=== PATIENT | female | born 1995 ===

== ENCOUNTER 2018-12-03 07:45 | Inpatient (IN) ==
[2018-12-03] MEDS ORDERED: miSOPROStol 50 MCG TAB PO ONE (09:13)
[2018-12-03] MEDS ORDERED: OXYTOCIN 30 UNITS/500 ML BAG IV PRN (09:13)
--- NOTE | 2018-12-03 09:19 | Labor Progress Brief Note ---
Date of Service December 03, 2018 Pt doing well FHR; CAT1 Ctx; 4-5mins VE 1cm/50/-3 / post A/p prolonged gestation discussed induction pt agreeable to plan Cytotec #1 Results & Data Vital Signs (Past 12 Hours) Vital Signs Temp Pulse Resp BP 12/03/18 08:05 37.0 C 18 12/03/18 08:00 80 118/72
[2018-12-03 09:39] LABS: Hematocrit (blood only) 36.2 % (37-47); Hemoglobin 12.2 g/dL (12.0-16.0); Mean Corpuscular Hemoglobin 30.3 pg (25-34); Mean Corpuscular Volume 89.8 fL (80-100); Platelet Count 166 K/uL (130-400); RDW Coefficient of Variation 13.4 % (11.5-14.5); RDW Standard Deviation 43.8 fL (36.4-46.3); Red Blood Count 4.03 M/uL (4.2-5.4); White Blood Count 9.64 K/uL (4.8-10.8)
[2018-12-03 09:42] LABS: Mean Corpuscular Hgb Conc 33.7 g/dL (32-36)
--- NOTE | 2018-12-03 09:46 | History and Physical Report ---
DATE OF ADMISSION: 12/03/2018 DATE OF : 1995 HISTORY OF PRESENT ILLNESS: The patient is a 23-year-old G1, P0, due date 11/28/2018 making her 40 weeks and 4 days, presented to Labor and Delivery for prolonged gestation. The patient is here for induction of labor. On arrival, she had no shortness of breath, no chills, no fever, no rupture of membranes or bloody show. The patient, however, has irregular contractions every 4-5 minutes, mild intensity. COURSE: Has been unremarkable. PAST MEDICAL HISTORY: None. PAST SURGICAL HISTORY: None. SOCIAL HISTORY: The patient denies tobacco, drug or alcohol use. FAMILY HISTORY: Noncontributory. ALLERGIES: No known drug allergies. MEDICATIONS: The patient is on vitamins. PHYSICAL EXAMINATION: GENERAL: Well-developed, well-nourished white female, in no acute distress. HEART: S1, S2. Regular rhythm and rate. LUNGS: Clear to auscultation bilaterally. ABDOMEN: Gravid. heart rate is category 1. Bedside ultrasound shows cephalic presentation. PELVIC: Shows the patient is 1 cm, 50% and -3 station. CERVIX: Moderate consistency and posterior. ASSESSMENT AND PLAN: A 23-year-old G1, P0 at 40 and 4 weeks, here for induction of labor for prolonged gestation. The patient is admitted and we will start induction.
[2018-12-03] MEDS ORDERED: miSOPROStol 50 MCG TAB PO SCH (13:30)
[2018-12-03] MEDS ORDERED: DINOPROSTONE 10 MG INSERT PV ONE (22:00)
--- NOTE | 2018-12-03 22:27 | Labor Progress Brief Note ---
Date of Service December 03, 2018 Pt doing well FHR; CAT1 Ctx 2-5mins VE 1-2/50/-3 EFW by slava: 7.5Lbs Cervidil #1 placed Results & Data Vital Signs (Past 12 Hours) Vital Signs Temp Pulse Resp BP 12/03/18 22:24 62 113/64 12/03/18 19:05 37.1 C 72 18 107/56 L 12/03/18 15:50 60 127/76 12/03/18 14:37 69 119/73 12/03/18 13:04 36.8 C 18 12/03/18 11:47 65 115/67
[2018-12-04] MEDS ORDERED: ACETAMINOPHEN 325 MG TAB PO PRN (00:24)
[2018-12-04] MEDS ORDERED: DiphenhydrAMINE HCL 50 MG/ML VIAL IV STA (00:26)
[2018-12-04] MEDS ORDERED: CEFAZOLIN 2000MG 2,000 MG/15 ML SYR IV SCH (06:00)
[2018-12-04] MEDS ORDERED: CITRIC ACID/SODIUM CITRATE 15 ML UDC PO SCH (06:00)
--- NOTE | 2018-12-04 08:48 | Obstetrical Progress Note ---
Date of Service December 04, 2018 Subjective Patient is seen Reviewed her records from office and got sign out from Dr. Bustillo She is a 23 yo at 40.6 wks admitted for IOL yesterday am had been uncomplicated GBS negative Received 2 doses of Cytotec and now has Cervidil Feels ctxs q 5-6 min, pain is 4/10 No LOF/VB +FM FHR 130's with goo variability and accels Plan to removed Cervidil at 1020, neyda her eat/ shower and reevaluate cervix All questions were answered Results & Data Vital Signs (Past 12 Hours) Vital Signs Temp Pulse Resp BP 12/04/18 07:24 77 107/72 12/04/18 07:23 18 12/04/18 04:27 36.9 C 60 18 110/67 12/03/18 22:24 37.2 C 62 18 113/64
[2018-12-04] MEDS: LACTATED RINGER'S 1,000 ML IV PRN ×2 (11:45→13:45)
--- NOTE | 2018-12-04 12:04 | Obstetrical Progress Note ---
Date of Service December 04, 2018 Subjective Patient is reevaluated She feels ctxs more often Cervidil was taken out, she took shower PE: She is 5' 6", thin healthy female Abdomen seems large, protruded, measures 41 cm VE: 3/ 70%/ -3, posterior Her mother is asking about baby's weight She herself had 2 Csections for large babies, 9 ' 12 " Patient's is large built and he was 11 lb at I performed bed side US, all measurements are above average except BPD which is in canal EFW 4489 gr Discussed LGA, labor, pushing, risks of shoulder dystocia in details Discussed ACOG recommendation of Csection if EFW above 5000 gr Discussed trial of labor They are tending toward Csection Discussed it is major surgery and the risks of major surgery After long discussion they wanted official US before they would proceed with IOL with pitocin All questions were answered Results & Data Vital Signs (Past 12 Hours) Vital Signs Temp Pulse Resp BP 12/04/18 11:48 37.2 C 83 20 116/81 12/04/18 07:24 77 107/72 12/04/18 07:23 18 12/04/18 04:27 36.9 C 60 18 110/67
--- NOTE | 2018-12-04 13:11 | Ultrasound Report ---
Study: Pelvic ultrasound HISTORY: Large for dates. FINDINGS: Single, viable intrauterine . Estimated gestational age is 40 weeks 2 days. Fetus is cephalic in position. Following parameters were obtained: 1. weight: 8 lbs. 7 oz. 2. BPD 9.3 equals 37 weeks 5 days. HC 33.3 equals 38 weeks 0 days. A.c. 36.4 equals 40 weeks 2 days. FL: 7.86 equals 40 weeks 1 day. Amniotic fluid index is 9.5 cm placenta is fundal IMPRESSION: Single, viable intrauterine of approximately 40 weeks gestational age. Cephalic presentation. Amniotic fluid index 9.5 cm Electronically signed by: Aman Scruggs M.D. 12/04/2018 1:09 PM JUN
--- NOTE | 2018-12-04 14:26 | Obstetrical Progress Note ---
Date of Service December 04, 2018 Subjective Patient is back from US EFW 8 lb 9 oz, measurements were not accurate due to head being in pelvis AC/ FL are about the same of mine Patient suspects large baby and nervous, she says she did not think she could have baby vaginally since yesterday I discussed ACOG recommendations again of trial of labor if EFW < 5000 gr/ 11 lb She understands but she suspects large baby as of her mother who had large babies and had to have Csection After discussion of the risks of major surgery like bleeding , infection, injury to surrounding organs ( like bowels, bladder, ureters) blood cloths, DVT, PE, suture risks of repeat Csection, scarring, adhesions She decided on Primary Csection today All questions were answered and she signed the informed consent consent Results & Data Vital Signs (Past 12 Hours) Vital Signs Temp Pulse Resp BP 12/04/18 11:48 37.2 C 83 20 116/81 12/04/18 07:24 77 107/72 12/04/18 07:23 18 12/04/18 04:27 36.9 C 60 18 110/67
[2018-12-04] MEDS ORDERED: LACTATED RINGER'S 1,000 ML IV SCH ×3 (14:30→16:45)
[2018-12-04] MEDS ORDERED: MoRPHine SULFATE PF 1 MG/ML 10 ML AMP/VIAL ONE (14:42)
[2018-12-04 15:16] LABS: Hematocrit (blood only) 35.5 % (37-47); Hemoglobin 11.8 g/dL (12.0-16.0); Mean Corpuscular Hemoglobin 29.8 pg (25-34); Mean Corpuscular Volume 89.6 fL (80-100); Mean Platelet Volume 11.9 fL (7.4-10.4); Platelet Count 162 K/uL (130-400); RDW Coefficient of Variation 13.4 % (11.5-14.5); RDW Standard Deviation 44.2 fL (36.4-46.3); Red Blood Count 3.96 M/uL (4.2-5.4); White Blood Count 8.37 K/uL (4.8-10.8)
[2018-12-04 15:17] LABS: Mean Corpuscular Hgb Conc 33.2 g/dL (32-36)
--- NOTE | 2018-12-04 15:24 | Anesthesiology Consultation ---
Date of Service December 04, 2018 Assessment & Plan (1) Encounter for pre-operative examination: Chart Review Chart Review: Acceptable Risk for Surgery History Surgery Operation Date: 12/04/18 14:50 Proposed Procedures p Section in LD - Robert Triplett MD Height/Weight Height: 5 ft 6 in Weight: 77.111 kg Allergies Allergy/AdvReac Type Severity Reaction Status Date / Time No Known Drug Allergies Allergy none Verified 12/03/18 08:55 Medications Home Medications Medication Instructions Recorded Confirmed Last Taken vit no.[id number] 1 tab PO DAILY 12/03/18 12/03/18 12/01/18 [ Vitamin] Active Medications Generic Name Dose Route Start Last Admin Trade Name Freq PRN Reason Stop Dose Admin Acetaminophen 650 mg 12/04/18 00:24 12/04/18 00:37 Tylenol PO 01/03/19 00:23 650 mg Q4H PRN Administration Pain Citric Acid/Sodium Citrate 30 ml 12/04/18 06:00 12/04/18 15:28 Bicitra PO 12/04/18 18:00 30 ml PREOP JASPAL Administration Lactated Ringer's 1,000 mls @ 125 mls/hr 12/03/18 09:13 12/04/18 14:49 Lr IV 12/05/18 09:12 999 mls/hr .Q8H PRN Infusion L&D Protocol Protocol Cefazolin Sodium 2,000 mg in 15 mls @ 3.75 mls/min 12/04/18 06:00 12/04/18 15:29 Ancef 2000mg IV 12/04/18 18:00 3.75 mls/min PREOP JASPAL Administration Protocol Misoprostol 50 mcg 12/03/18 13:30 12/03/18 16:50 Cytotec PO 01/02/19 13:29 50 mcg ONCE JASPAL Administration NPO Date Last Intake of Fluids: 12/04/18 Time Last Intake of Fluids: 11:00 Date Last Intake of Solids: 12/04/18 Time Last Intake of Solids: 11:00 Past Medical History Medical History No significant medical problems Exercise / Class Metabolic Activity II 4-5 Yardwork/Stairs/Walk up hill Past Surgical History Surgical History History of open reduction and internal fixation (ORIF) procedure Social History Smoking Status: Unknown if ever smoked Do You Dip or Chew Tobacco: No Hx Alcohol Use: No Hx Substance Use: No Physical Exam Vital Signs Last Vital Signs Temp 37.1 C 12/04/18 15:04 Pulse 75 12/04/18 15:04 Resp 18 12/04/18 15:04 BP 122/75 12/04/18 15:04 Testing Laboratory Results 12/04/18 14:38 Blood Type A Positive 12/04/18 09:35 Antibody Screen NEGATIVE 12/04/18 09:35
[2018-12-04] MEDS ORDERED: OXYTOCIN 10 UNITS/ML VIAL ONE ×3 (15:50→16:17)
[2018-12-04] MEDS ORDERED: SUCCINYLCHOLINE CHLORIDE 20 MG/ML 10 ML VIAL ONE (15:50)
[2018-12-04] MEDS ORDERED: METOCLOPRAMIDE HCL INJ 5 MG/ML 2 ML VIAL ONE (15:50)
[2018-12-04] MEDS ORDERED: ePHEDrine sulfate 50 MG/ML SYR ONE (15:50)
[2018-12-04] MEDS ORDERED: LIDOCAINE HCL 2% MPF (LOCAL) 5 ML VIAL INFIL ONE (15:50)
[2018-12-04] MEDS ORDERED: PROPOFOL IV EMULSION 10 MG/ML 20 ML VIAL IV ONE (15:50)
[2018-12-04] MEDS ORDERED: ONDANSETRON INJ 2 MG/ML 2 ML VIAL ONE (15:50)
[2018-12-04 15:54] LABS: Basophils # (auto) 0.02 K/uL (0-0.2); Basophils % (auto) 0.2 %; Eosinophils # (auto) 0.05 K/uL (0-0.5); Eosinophils % (auto) 0.6 %; Immature Granulocytes # (auto) 0.02 K/uL (0.00-0.02); Immature Granulocytes % (auto) 0.2 %; Lymphocytes # (auto) 1.41 K/uL (1.2-3.4); Lymphocytes % (auto) 16.8 %; Monocytes # (auto) 0.76 K/uL (0.11-0.59); Monocytes % (auto) 9.1 %; Neutrophils # (auto) 6.11 K/uL (1.4-6.5); Neutrophils % (auto) 73.1 %
[2018-12-04] MEDS ORDERED: KETOROLAC 30 MG/ML VIAL IV PRN (16:06)
[2018-12-04] MEDS ORDERED: LACTATED RINGER'S 500 ML IV PRN (16:06)
[2018-12-04] MEDS ORDERED: MEPERIDINE HCL 25 MG/ML CARP IV PRN (16:06)
[2018-12-04] MEDS ORDERED: DiphenhydrAMINE HCL 50 MG/ML VIAL IV PRN (16:06)
[2018-12-04] MEDS ORDERED: MoRPHine SULFATE PF 1 MG/ML 10 ML AMP/VIAL INT SPINAL ONE (16:06)
[2018-12-04] MEDS ORDERED: PROMETHAZINE HCL 12.5 MG in SODIUM CHLORIDE 0.9% 50 ML IV PRN (16:06)
[2018-12-04] MEDS ORDERED: NALBUPHINE HCL INJ 10 MG/ML AMP IV PRN (16:06)
[2018-12-04] MEDS ORDERED: ePHEDrine sulfate 50 MG/ML AMP IV PRN (16:06)
[2018-12-04] MEDS ORDERED: NALOXONE HCL 0.08 MG in SYRINGE 1.8 ML IV PRN (16:06)
[2018-12-04] MEDS ORDERED: NALOXONE HCL 0.4 MG/1 ML VIAL/CARP IV PRN (16:06)
[2018-12-04] MEDS ORDERED: NALOXONE HCL 1 MG in SODIUM CHLORIDE 0.9% 1000ML 1,000 ML IV PRN (16:06)
[2018-12-04] MEDS ORDERED: ONDANSETRON INJ 2 MG/ML 2 ML VIAL IV PRN (16:06)
[2018-12-04] MEDS ORDERED: NO NARCOTICS OR SEDATIVES SCH (16:15)
[2018-12-04] MEDS ORDERED: OXYTOCIN 10 UNITS/ML VIAL IM ONE (16:15)
[2018-12-04] MEDS ORDERED: SODIUM CHLORIDE 0.9% 1000ML 1,000 ML IV SCH (16:15)
--- NOTE | 2018-12-04 16:27 | Post Operative Brief Note ---
Immediate Post Op Note v1 Date of Surgery December 04, 2018 Pre & Post Diagnosis Operation Date: 12/04/18 14:50 <No data on this case meets the specified criteria> Suspected macrosomia Procedure Operation Date: 12/04/18 14:50 Actual Procedures p Section in LD, live female child at 1555 - Robert Triplett MD Surgeon Robert Triplett MD Harness Inspector Dr. Alicia Estimated Blood Loss 700 Findings Consistent with Post-Op Diagnosis Fluids 2000 ml Drains Garcia Catheter Anesthesia Type Spinal Disposition Accompanied Patient To Recovery: Yes Disposition: L&D Overlapping Procedure I was present for: the critical portions of procedure. (I WAS PRESENT FOR THE WHOLE PROCEDURE)
[2018-12-04] MEDS ORDERED: BENZOCAINE 20% AER SPR 82.5 GM CAN EXT PRN (16:31)
[2018-12-04] MEDS ORDERED: MAGNESIUM HYDROXIDE SUSP 30 ML UDC PO PRN (16:31)
[2018-12-04] MEDS ORDERED: SENNA 8.6 MG TAB PO PRN (16:31)
[2018-12-04] MEDS ORDERED: SUPERCREAM 0.870% 15 GM JAR EXT PRN (16:31)
[2018-12-04] MEDS ORDERED: HYDROCORTISONE ACETATE 25 MG SUPP PR PRN (16:31)
[2018-12-04] MEDS: SIMETHICONE 80 MG CHEW PO SCH ×2 (18:26→22:43)
[2018-12-04] MEDS: OXYTOCIN 20 UNITS in LACTATED RINGER'S 1,000 ML IV SCH (18:42)
--- NOTE | 2018-12-04 20:20 | Operative Report ---
DATE OF OPERATION: 12/04/2018 TIME OF DELIVERY OF BABY: 1555 p.m. PREOPERATIVE DIAGNOSES: The patient is a 23-year-old G1, P0 at 40 weeks and 6 days of gestation, admitted for induction of labor since yesterday morning and prolonged latent phase suspected macrosomia. The patient desires primary . POSTOPERATIVE DIAGNOSES: The patient is a 23-year-old G1, P0 at 40 weeks and 6 days of gestation, admitted for induction of labor since yesterday morning and prolonged latent phase suspected macrosomia. The patient desires primary . PROCEDURE: Primary low transverse with Pfannenstiel skin incision. SURGEON: Robert Triplett MD TOILET AND LAUNDRY SOAP SUPERVISOR: Chacorta Alicia MD ANESTHESIA: Spinal, Dr. Riggins. FLUIDS: She received 2000 mL of lactated ringer. DRAINS: Garcia catheter drained 300 mL of clear urine. COMPLICATIONS: None. ESTIMATED BLOOD LOSS: 700 mL. FINDINGS: Baby was a viable female infant in cephalic direct occiput posterior position, delivered at 1555 p.m. Apgars were 9/10 and weight was 4389 grams which is 9 pounds 10.5 ounces. Maternal findings, normal uterus, fallopian tubes and ovaries. DESCRIPTION OF PROCEDURE: The patient was taken to the operating room where spinal anesthesia was given without difficulty. She was placed in dorsal supine position with a leftward tilt. She was prepared and draped in usual sterile fashion. A Pfannenstiel skin incision was made and carried through to the underlying layer of fascia with the Bovie. Fascia was incised in the midline and incision was extended laterally with the help of Cooley scissors. Upper aspect of the fascial incision was then grasped with 2 Mica clamps, elevated, underlying rectus muscles were dissected off sharply with Cooley scissors. Lower aspect of the fascial incision was grasped with 2 Mica clamps, elevated, underlying rectus muscle dissected sharply with Cooley scissors. Rectus muscles were in the midline. Peritoneum was identified, entered bluntly with fingers. Peritoneal incision was extended superiorly and inferiorly with good visualization of the bladder. Bladder blade was inserted and vesicouterine peritoneum was identified, grasped with pickups, entered sharply with Metzenbaum scissors. Bladder flap was created digitally and bladder blade was reinserted. Lower uterine segment was incised in transverse fashion, incision was extended laterally with the help of fingers and then membranes were ruptured. Clear fluid was obtained and baby's face was at the incision indicating direct occiput posterior position. Baby's head was delivered without difficulty. Shoulders were delivered with minimal traction. Mouth and nose were suctioned. Cord was clamped x2 and cut at 1 minute delay. Baby was handed to the waiting continuous pickling line pickler, Dr. Bonilla. Placenta was delivered manually as intact and complete. Uterus was explored. Uterus was exteriorized, cleared of all clots and debris. Fundus was massaged and became firm. Uterine incision was repaired with 0 Vicryl in a running locked fashion and a second imbricating layer was placed with 0 Vicryl in a running fashion. Excellent hemostasis was achieved. The cul-de-sac was irrigated with normal saline and suctioned. Ovaries and fallopian tubes were checked to be normal. Uterus was returned to the abdomen. The pelvis was irrigated with warm normal saline and suctioned. Incision was checked again hemostatic. Parietal peritoneum was grasped with 3 Kellys. It was reapproximated with 3-0 Vicryl in a running fashion and the rectus muscles were reapproximated with the same suture in a running fashion and under the fascia and rectus muscles were checked to be hemostatic. Fascia was repaired with 0 Vicryl in a running fashion. Subcuticular fat tissue was brought together with 3-0 Vicryl in a running fashion. Skin was closed with irma. The patient tolerated the procedure well. Sponge, lap, needle, instrument count was correct x3 and no complications happened. I was and Dr. Alicia was present during whole procedure. The patient received 2 grams of cefazolin before surgery. She was taken to the recovery room in stable condition. I attest to the content of the Intraoperative Record and any orders documented therein. Any exceptions are noted below. JUN
--- NOTE | 2018-12-04 20:36 | Anesthesiology Progress Note ---
Date of Service December 04, 2018 Anesthesia Post Procedure Vital Signs Vital Signs: Temp Pulse Pulse Resp BP BP Pulse Ox 12/04/18 19:56 16 100 12/04/18 19:00 36.6 C 69 16 121/72 100 12/04/18 18:37 79 100 12/04/18 18:32 101 H 111/71 100 12/04/18 18:30 18 12/04/18 18:27 84 99 12/04/18 18:22 98 H 115/63 99 12/04/18 18:17 92 H 98 12/04/18 18:13 74 110/67 12/04/18 18:12 85 100 12/04/18 18:07 79 100 12/04/18 18:03 87 117/73 12/04/18 18:02 91 H 100 12/04/18 17:57 82 100 12/04/18 17:52 92 H 114/59 L 100 12/04/18 17:47 92 H 100 12/04/18 17:42 85 114/55 L 100 12/04/18 17:37 88 100 12/04/18 17:33 99 H 115/59 L 12/04/18 17:32 99 H 100 12/04/18 17:30 18 12/04/18 17:27 89 100 12/04/18 17:22 90 124/66 100 12/04/18 17:17 80 100 12/04/18 17:15 18 12/04/18 17:07 90 100 12/04/18 17:05 95 H 18 93 12/04/18 17:03 96 H 118/87 12/04/18 17:02 98 H 100 12/04/18 16:57 93 H 100 12/04/18 16:53 60 119/60 12/04/18 16:52 61 18 100 12/04/18 16:47 65 100 12/04/18 16:42 100 H 18 124/70 100 12/04/18 16:37 70 100 12/04/18 16:32 36.5 C 61 18 115/53 L 100 12/04/18 15:04 37.1 C 75 18 122/75 12/04/18 11:48 37.2 C 83 20 116/81 12/04/18 07:24 77 107/72 12/04/18 07:23 36.7 C 18 12/04/18 04:27 36.9 C 60 18 110/67 12/03/18 22:24 37.2 C 62 18 113/64 Pain Intensity Lower Abdomen: Pain Intensity: 1 Transfer of Care Handoff Completed per policy Notes Mental Status: alert / awake / arousable Patient Amnestic to Procedure: Yes Nausea / Vomiting: adequately controlled Pain: adequately controlled Airway Patency, RR, SpO2: stable & adequate BP & HR: stable & adequate Hydration State: stable & adequate Neuraxial Anesthesia: was administered and sensory block is resolving Anesthetic Complications: no major complications apparent
[2018-12-04] MEDS: DOCUSATE SODIUM 100 MG CAP PO SCH (22:42)
--- NOTE | 2018-12-05 00:40 | Obstetrical Progress Note ---
Date of Service December 05, 2018 Subjective Patient is seen and examined. She feels well, no complaints. Pain is under control with oral meds. Not OOB yet No dizziness Garcia is in Tolerating clear diet with out N&V Flatus neg Bleeding is minimal No fever/ chills/ CP/ SOB/ N&V/ Leg pain Breast feeding without problems Vital Signs Temp Pulse Pulse Resp BP BP Pulse Ox 12/04/18 22:00 16 99 12/04/18 19:56 16 100 12/04/18 19:00 36.6 C 69 16 121/72 100 12/04/18 18:37 79 100 12/04/18 18:32 101 H 111/71 100 12/04/18 18:30 18 12/04/18 18:27 84 99 12/04/18 18:22 98 H 115/63 99 12/04/18 18:17 92 H 98 12/04/18 18:13 74 110/67 12/04/18 18:12 85 100 12/04/18 18:07 79 100 12/04/18 18:03 87 117/73 12/04/18 18:02 91 H 100 12/04/18 17:57 82 100 12/04/18 17:52 92 H 114/59 L 100 12/04/18 17:47 92 H 100 12/04/18 17:42 85 114/55 L 100 12/04/18 17:37 88 100 12/04/18 17:33 99 H 115/59 L 12/04/18 17:32 99 H 100 12/04/18 17:30 18 12/04/18 17:27 89 100 12/04/18 17:22 90 124/66 100 12/04/18 17:17 80 100 12/04/18 17:15 18 12/04/18 17:07 90 100 12/04/18 17:05 95 H 18 93 12/04/18 17:03 96 H 118/87 12/04/18 17:02 98 H 100 12/04/18 16:57 93 H 100 12/04/18 16:53 60 119/60 12/04/18 16:52 61 18 100 12/04/18 16:47 65 100 12/04/18 16:42 100 H 18 124/70 100 12/04/18 16:37 70 100 12/04/18 16:32 36.5 C 61 18 115/53 L 100 12/04/18 15:04 37.1 C 75 18 122/75 Intake & Output 12/04/18 12/04/18 12/05/18 14:59 22:59 06:59 Intake Total 1096.65 / 1862.55 765.9 / 1862.55 Output Total 650 / 650 Balance 1096.65 / 1212.55 115.9 / 1212.55 Weight 77.111 kg Intake: IV 1096.65 / 1862.55 765.9 / 1862.55 Lr 1,000 ml @ 125 mls/hr IV . 1096.65 / 1862.55 765.9 / 1862.55 Q8H PRN Rx#:[id number] Output: Urine Amount (Catheter) 650 / 650 Garcia/Indwelling 650 / 650 PE: General: Alert, orientedx3, NAD CVS: S1S2 RRR Lungs; CTAB Abd: soft, NT, ND, BS+, fundus firm, below Umbilicus Dressing: Clean, dry, intact Perineum intact, Lochia rubra minimal Ext; NT, no edema AP: 23 yo s/p Primary C Section, pod# 1 VSS Afebrile doing well Continue routine postop care Encourage ambulation, PO intake in am All questions were answered Results & Data Vital Signs (Past 12 Hours) Vital Signs Temp Pulse Pulse Resp BP BP Pulse Ox 12/04/18 22:00 16 99 12/04/18 19:56 16 100 12/04/18 19:00 36.6 C 69 16 121/72 100 12/04/18 18:37 79 100 12/04/18 18:32 101 H 111/71 100 12/04/18 18:30 18 12/04/18 18:27 84 99 12/04/18 18:22 98 H 115/63 99 12/04/18 18:17 92 H 98 12/04/18 18:13 74 110/67 12/04/18 18:12 85 100 12/04/18 18:07 79 100 12/04/18 18:03 87 117/73 12/04/18 18:02 91 H 100 12/04/18 17:57 82 100 12/04/18 17:52 92 H 114/59 L 100 12/04/18 17:47 92 H 100 12/04/18 17:42 85 114/55 L 100 12/04/18 17:37 88 100 12/04/18 17:33 99 H 115/59 L 12/04/18 17:32 99 H 100 12/04/18 17:30 18 12/04/18 17:27 89 100 12/04/18 17:22 90 124/66 100 12/04/18 17:17 80 100 12/04/18 17:15 18 12/04/18 17:07 90 100 12/04/18 17:05 95 H 18 93 12/04/18 17:03 96 H 118/87 12/04/18 17:02 98 H 100 12/04/18 16:57 93 H 100 12/04/18 16:53 60 119/60 12/04/18 16:52 61 18 100 12/04/18 16:47 65 100 12/04/18 16:42 100 H 18 124/70 100 12/04/18 16:37 70 100 12/04/18 16:32 36.5 C 61 18 115/53 L 100 12/04/18 15:04 37.1 C 75 18 122/75
[2018-12-05] MEDS: OXYTOCIN 20 UNITS in LACTATED RINGER'S 1,000 ML IV SCH (01:58)
[2018-12-05 06:36] LABS: Basophils # (auto) 0.02 K/uL (0-0.2); Basophils % (auto) 0.2 %; Eosinophils # (auto) 0.04 K/uL (0-0.5); Eosinophils % (auto) 0.4 %; Hematocrit (blood only) 28.7 % (37-47); Hemoglobin 9.5 g/dL (12.0-16.0); Immature Granulocytes # (auto) 0.03 K/uL (0.00-0.02); Immature Granulocytes % (auto) 0.3 %; Lymphocytes # (auto) 1.16 K/uL (1.2-3.4); Lymphocytes % (auto) 11.9 %; Mean Corpuscular Hemoglobin 29.9 pg (25-34); Mean Corpuscular Hgb Conc 33.1 g/dL (32-36); Mean Corpuscular Volume 90.3 fL (80-100); Mean Platelet Volume 11.5 fL (7.4-10.4); Monocytes # (auto) 1.11 K/uL (0.11-0.59); Monocytes % (auto) 11.4 %; Neutrophils # (auto) 7.38 K/uL (1.4-6.5); Neutrophils % (auto) 75.8 %; Platelet Count 133 K/uL (130-400); RDW Coefficient of Variation 13.5 % (11.5-14.5); RDW Standard Deviation 44.6 fL (36.4-46.3); Red Blood Count 3.18 M/uL (4.2-5.4); White Blood Count 9.74 K/uL (4.8-10.8)
--- NOTE | 2018-12-05 07:18 | Anesthesiology Progress Note ---
Date of Service December 05, 2018 Anesthesia Post Procedure Vital Signs Vital Signs: Temp Pulse Pulse Resp BP BP Pulse Ox 12/05/18 06:30 18 99 12/05/18 05:05 37.3 C 75 18 107/66 99 12/05/18 04:05 16 98 12/05/18 03:10 18 97 12/05/18 02:10 18 98 12/05/18 01:10 18 97 12/05/18 00:25 37.2 C 83 18 100/57 L 98 12/04/18 23:10 16 98 12/04/18 22:00 16 99 12/04/18 19:56 16 100 12/04/18 19:00 36.6 C 69 16 121/72 100 12/04/18 18:37 79 100 12/04/18 18:32 101 H 111/71 100 12/04/18 18:30 18 12/04/18 18:27 84 99 12/04/18 18:22 98 H 115/63 99 12/04/18 18:17 92 H 98 12/04/18 18:13 74 110/67 12/04/18 18:12 85 100 12/04/18 18:07 79 100 12/04/18 18:03 87 117/73 12/04/18 18:02 91 H 100 12/04/18 17:57 82 100 12/04/18 17:52 92 H 114/59 L 100 12/04/18 17:47 92 H 100 12/04/18 17:42 85 114/55 L 100 12/04/18 17:37 88 100 12/04/18 17:33 99 H 115/59 L 12/04/18 17:32 99 H 100 12/04/18 17:30 18 12/04/18 17:27 89 100 12/04/18 17:22 90 124/66 100 12/04/18 17:17 80 100 12/04/18 17:15 18 12/04/18 17:07 90 100 12/04/18 17:05 95 H 18 93 12/04/18 17:03 96 H 118/87 12/04/18 17:02 98 H 100 12/04/18 16:57 93 H 100 12/04/18 16:53 60 119/60 12/04/18 16:52 61 18 100 12/04/18 16:47 65 100 12/04/18 16:42 100 H 18 124/70 100 12/04/18 16:37 70 100 12/04/18 16:32 36.5 C 61 18 115/53 L 100 12/04/18 15:04 37.1 C 75 18 122/75 12/04/18 11:48 37.2 C 83 20 116/81 12/04/18 07:24 77 107/72 12/04/18 07:23 36.7 C 18 Pain Intensity Lower Abdomen: Pain Intensity: 2 Transfer of Care Handoff Completed per policy Notes Mental Status: alert / awake / arousable Patient Amnestic to Procedure: Yes Nausea / Vomiting: adequately controlled Pain: adequately controlled Airway Patency, RR, SpO2: stable & adequate BP & HR: stable & adequate Hydration State: stable & adequate Neuraxial Anesthesia: was administered and sensory block resolved Anesthetic Complications: no major complications apparent and Pt Satisfied with anesthetic care
--- NOTE | 2018-12-05 08:39 | Obstetrical Progress Note ---
Date of Service December 05, 2018 Physical Exam Physical Exam: abdomen soft and non tender bandage is dry vaginal bleeding scant to moderate hgb 9.5 bowel sounds normal passing flatus Results & Data Vital Signs (Past 12 Hours) Vital Signs Temp Pulse Resp BP Pulse Ox 12/05/18 06:30 18 99 12/05/18 05:05 37.3 C 75 18 107/66 99 12/05/18 04:05 16 98 12/05/18 03:10 18 97 12/05/18 02:10 18 98 12/05/18 01:10 18 97 12/05/18 00:25 37.2 C 83 18 100/57 L 98 12/04/18 23:10 16 98 12/04/18 22:00 16 99
[2018-12-05] MEDS ORDERED: MEASLES, MUMPS & RUBELLA VIRUS VIAL SQ ONE (09:00)
[2018-12-05] MEDS ORDERED: DIPHTHERIA/TETANUS/PERTUSSIS 0.5 ML SYR/VIAL IM ONE (09:00)
[2018-12-05] MEDS: PRENATAL VITAMIN 1 TAB PO SCH (09:33)
[2018-12-05] MEDS: DOCUSATE SODIUM 100 MG CAP PO SCH ×2 (09:33→20:29)
[2018-12-05] MEDS: SIMETHICONE 80 MG CHEW PO SCH ×4 (09:33→20:29)
[2018-12-05] MEDS: FERROUS SULFATE 325 MG TAB PO SCH (09:33)
[2018-12-05] MEDS ORDERED: DC INTRASPINAL MORPHINE SCH (10:06)
[2018-12-05] MEDS ORDERED: ONDANSETRON INJ 2 MG/ML 2 ML VIAL IV PRN (10:06)
[2018-12-05] MEDS ORDERED: MEPERIDINE HCL 50 MG/ML CARP IV PRN (10:06)
[2018-12-05] MEDS ORDERED: KETOROLAC 30 MG/ML VIAL IV PRN (10:06)
[2018-12-05] MEDS ORDERED: PROMETHAZINE HCL 25 MG in SODIUM CHLORIDE 0.9% 50 ML IV PRN (10:06)
[2018-12-05] MEDS ORDERED: DiphenhydrAMINE HCL 50 MG/ML VIAL IV PRN (10:07)
[2018-12-05] MEDS: IBUPROFEN 600 MG TAB PO PRN ×2 (12:33→20:29)
[2018-12-05] MEDS ORDERED: BISACODYL 5 MG TABEC PO SCH (20:00)
[2018-12-06 07:18] LABS: Hematocrit (blood only) 28.9 % (37-47); Hemoglobin 9.5 g/dL (12.0-16.0)
[2018-12-06] MEDS: PRENATAL VITAMIN 1 TAB PO SCH (08:05)
[2018-12-06] MEDS: DOCUSATE SODIUM 100 MG CAP PO SCH ×2 (08:05→20:07)
[2018-12-06] MEDS: IBUPROFEN 600 MG TAB PO PRN ×3 (09:11→18:07)
--- NOTE | 2018-12-06 10:23 | Surgery Progress Note ---
Date of Service December 06, 2018 Subjective doing well out of bed ambulating tolerating diet Physical Exam Constitutional: WD/WN, vitals as above comfortable incision clean dry and intact abdomen soft non-tender fundus firm no edema neg Shanita's will increase diet and activity possible discharge in AM Results & Data Vital Signs (Past 12 Hours) Vital Signs Temp Pulse Resp BP 12/06/18 08:00 37.0 C 70 18 117/70 12/05/18 23:45 36.9 C 78 18 112/65
[2018-12-06] MEDS: SIMETHICONE 80 MG CHEW PO SCH ×3 (12:44→20:07)
[2018-12-06] MEDS ORDERED: BISACODYL 10 MG SUPP PR PRN (16:32)
[2018-12-06] MEDS: OXYCODONE/ACETAMINOPHEN 5mg/325mg TAB PO PRN (20:08)
--- NOTE | 2018-12-07 08:19 | Surgery Progress Note ---
Date of Service December 07, 2018 Subjective doing well planning on discharge today passing gas/+BM breast feeding OK Physical Exam Constitutional: WD/WN, vitals as above comfortable incision clean/dry/intact fundus firm no edema neg Shanita's for discharge Results & Data Vital Signs (Past 12 Hours) Vital Signs Temp Pulse Resp BP 12/06/18 23:30 36.9 C 64 20 111/74 Laboratory Results Laboratory Results - last 48 hr 12/06/18 06:24 Hgb 9.5 L Hct 28.9 L
[2018-12-07] MEDS: IBUPROFEN 600 MG TAB PO PRN (08:56)
[2018-12-07] MEDS: OXYCODONE/ACETAMINOPHEN 5mg/325mg TAB PO PRN (08:57)
[2018-12-07] MEDS: DOCUSATE SODIUM 100 MG CAP PO SCH (08:57)
[2018-12-07] MEDS: PRENATAL VITAMIN 1 TAB PO SCH (08:57)
[2018-12-07] MEDS: SIMETHICONE 80 MG CHEW PO SCH (08:57)
[2018-12-07] MEDS: FERROUS SULFATE 325 MG TAB PO SCH (08:58)
--- NOTE | 2018-12-09 17:58 | Discharge Summary ---
DETAILS OF ADMISSION: The patient is a 23-year-old G1, P0 at 40 weeks and 5 days of gestation. She was admitted on 12/03/2018 for induction of labor for postdates. She had no complaints. Her cervix was fingertip, 50, -3. She was admitted by Dr. Bustillo. She received 2 doses of Cytotec, which gave her regular contractions and then they spaced out and she received Cervidil overnight until 12/04/2018. It was removed and her cervix was 3, 50 and -3. On the Roberth examination, she had distended large belly suspicious for macrosomia. With Roberth's, baby felt to be around 10 pounds and I did bedside ultrasound. Estimated weight was between 3651-4894 and fluid was low around 8 cm and she had thin stature and she did not think she could deliver vaginally. After a long discussion of trial of vaginal versus and the risks of major surgery, , she decided to go for . See dictated OP note for details. She delivered a viable female infant at 15:55 p.m. Weight was 4389 grams. Apgars 9/10. Her surgery was uncomplicated. See dictated OP note for details. On postop period, the patient was doing well. Vital signs stable, afebrile. Urine output was adequate. Her examination was unremarkable. Her abdomen was soft, nontender, nondistended and she was without difficulty and dressings were clean, dry and intact. On postop day #1, the patient was doing well. Vital signs stable, afebrile. Abdomen soft, nontender. Incision was clean, dry and intact. Hemoglobin was 9.5. On postop day #2, the patient was doing well. Vital signs stable, afebrile. Incision was clean, dry and intact. Bleeding was minimal. Postop day #3, the patient was doing well. She wanted to be discharged. She was passing gas, moving her bowels and tolerating regular diet, ambulating easily. Incision was clean, dry and intact. She was discharged on postop day #3, 12/07/2018. Discharge instructions were given when to call. Prescriptions were written for pain. She is to be seen in the office in a week for incision check. [id number]
== END 2018-12-07 13:30 | disposition home or self-care (01) | DRG 788 ==
LOC: 4S1 07:55 → 4S2 12-04 18:47

== ENCOUNTER 2020-05-03 22:50 | Inpatient (IN) ==
--- NOTE | 2020-05-03 23:21 | History & Physical Report ---
Date of Service May 03, 2020 Assessment & Plan (1) History of delivery: (2) Spontaneous rupture of amniotic membranes: 33 yo at 38.5 wks with SROM at term, h/o prior C Section Vital signs stable afebrile heart rate reassuring Contractions every 4 to 5 minutes, vertex presentation Bedside ultrasound confirmed vertex presentation and estimated weight 3770 g, Ultrasound at 34 weeks wa [id number] gr ( 51% ile) History of prior macrosomia Discussed with the patient about TOLAC / versus repeat tonight. I gave him the form from [employer] benefits and risks of TOLAC and repeat . She attended all and we revealed the risks of old and she signed that informed consent and desires to try TOLAC/ . Understands labor may not be successful and prolonged due to unfavorable cervix. We discussed expectant management for 3 to 4 hours and then reevaluate her cervix and start low-dose Pitocin if there will be no No change Understands the risks of internal rupture and risks to the baby and herself. All questions were answered. History of Present Illness Primary Care Provider: NO PCP Patient is a 24-year-old -0-0-1 at 38 weeks and 5 days of gestation, who felt leakage of fluid at 10 PM, it was clear. She feels mild irregular contractions and denies vaginal bleeding. She reports good movements. No fever/ chills/ N&V/ SPEARS/ Change in vision/ ab d pain Her has been complicated by 1) history of prior due to arrest of dilatation and macrosomia with 9 pound 10 ounce baby in 2019 2) GBS + Allergies Allergy/AdvReac Type Severity Reaction Status Date / Time No Known Drug Allergies Allergy none Verified 05/03/20 23:12 Home Medications Medication Instructions Recorded Confirmed Type Vitamin 1 tab PO DAILY 12/03/18 05/03/20 History Patient History Medical History delivery delivered 12/04/2018 No significant medical problems Surgical History History of open reduction and internal fixation (ORIF) procedure Social History Smoking Status: Never smoker Hx Alcohol Use: No Hx Substance Use: No Preferred Language: Macedonian Communication Ability: Effective 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 Beliefs That Will Affect Care: None marital status: Single Current Living Situation: Significant Other Current Living Situation Comment: apartment with daughter and FOB Other Information That Helps Us Care for You: No Feels Safe at Home: Yes Safety Concerns: Feels Safe At This Time Assistive Devices: None 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 No h/o STD's, no chlamydia/ GC/ HSV Review of Systems All systems reviewed & are unremarkable except as noted in HPI & below Physical Exam Constitutional: WD/WN, vitals as above well developed and well nourished NAD Gastrointestinal (Abdomen): normal bowel sounds, soft, nontender, no hepatosplenomegaly (GRAVID, MARIAH 7-8 LB) Genitourinary: normal external appearance (Gorssly ruptured, nitrazine positive) Manual OB Exam: + cervical dilation 1 cm, + cervical effacement 30% and + station high OB Exam Monitor Tracing: + external uterine monitor used and + category I Results & Data ([facility] [place]) Vital Signs (Past 12 Hours) Vital Signs Temp Pulse Resp BP 05/03/20 23:07 37.1 C 94 H 18 127/71
[2020-05-03] MEDS ORDERED: OXYTOCIN 30 UNITS/500 ML BAG IV PRN ×2 (23:31→23:39)
[2020-05-03] MEDS: LACTATED RINGER'S 1,000 ML IV PRN (23:39)
[2020-05-03] MEDS ORDERED: BUTORPHANOL TARTRATE 1 MG/ML VIAL IV PRN (23:39)
[2020-05-03] MEDS ORDERED: PENICILLIN G POTASSIUM 6 MU in DEXTROSE 5% 250 ML IV STA (23:41)
[2020-05-03 23:47] LABS: Hematocrit (blood only) 36.2 % (37-47); Hemoglobin 11.6 g/dL (12.0-16.0); Mean Corpuscular Hemoglobin 29.5 pg (25-34); Mean Corpuscular Volume 92.1 fL (80-100); Mean Platelet Volume 11.8 fL (7.4-10.4); Platelet Count 176 K/uL (130-400); RDW Coefficient of Variation 14.8 % (11.5-14.5); Red Blood Count 3.93 M/uL (4.2-5.4); White Blood Count 9.95 K/uL (4.8-10.8)
[2020-05-04] MEDS: PENICILLIN G POTASSIUM 3 MU in DEXTROSE 5% 100 ML IV PRN ×2 (04:01→08:23)
[2020-05-04] MEDS: LACTATED RINGER'S 1,000 ML IV PRN ×2 (07:45→11:17)
[2020-05-04] MEDS ORDERED: BUPIVACAINE 0.25% 30 ML VIAL ONE (07:53)
[2020-05-04] MEDS ORDERED: ePHEDrine sulfate 50 MG/ML AMP ONE (07:53)
[2020-05-04] MEDS ORDERED: SODIUM CHLORIDE 0.9% INJ 10 ML VIAL ONE (07:53)
[2020-05-04] MEDS ORDERED: fentaNYL citrate 100 MCG/2 ML VIAL ONE (07:54)
[2020-05-04] MEDS ORDERED: fentaNYL 2MCG/ML ROPIVACAINE 1.25MG/ML 100 ML BAG EPI ONE (07:54)
--- NOTE | 2020-05-04 08:02 | Anesthesiology Consultation ---
Date of Service May 04, 2020 Assessment & Plan Chart Review Chart Review: Acceptable Risk for Labor Epidural Consults Requested none ASA ASA2 Proposed Anesthesia Anesthesia Type: Labor Epidural Risk / Benefits Reviewed With: PT / POA / Parent / Guardian, Accepts Plan and Informed Consent Obtained History Height/Weight Height: 5 ft 6 in Weight: 78.471 kg Allergies Allergy/AdvReac Type Severity Reaction Status Date / Time No Known Drug Allergies Allergy none Verified 05/03/20 23:12 Medications Home Medications Medication Instructions Recorded Confirmed Last Taken Vitamin 1 tab PO DAILY 12/03/18 05/03/20 12/01/18 Active Medications Generic Name Dose Route Start Last Admin Trade Name Freq PRN Reason Stop Dose Admin Butorphanol Tartrate 1 mg 05/03/20 23:39 05/04/20 05:51 Butorphanol Tartrate 1 Mg/Ml Vial IV 06/02/20 23:38 1 mg Q3HWA PRN Administration Pain Lactated Ringer's 1,000 mls @ 150 mls/hr 05/03/20 23:31 05/04/20 07:45 Lr IV 05/05/20 23:30 999 mls/hr .Q6H40M PRN Administration L&D Protocol Protocol Penicillin G Potassium 3 mu/ 106 mls @ 100 mls/hr 05/03/20 23:31 05/04/20 05:05 Dextrose IV 05/13/20 23:30 Infused Q4H PRN Infusion Give until delivery Oxytocin 30 units in 500 mls @ 3 mls/hr 05/03/20 23:39 05/04/20 06:45 Pitocin IV 05/05/20 23:38 0.18 units/hr .Q24H PRN 3 mls/hr Labor Induction/Augmentation Titration Protocol 0.18 UNITS/HR Past Medical History Medical History delivery delivered 12/04/2018 No significant medical problems Exercise / Class Metabolic Activity II 4-5 Yardwork/Stairs/Walk up hill Past Surgical History Surgical History History of open reduction and internal fixation (ORIF) procedure Past Anesthesia History No Hx of Anesthesia Complications and No Family Hx of Anesthesia Complications History of PONV No Hx of PONV and No Hx of Motion Sickness Social History Smoking Status: Never smoker Hx Alcohol Use: No Hx Substance Use: No Physical Exam Vital Signs Last Vital Signs Temp 97.7 F 05/04/20 05:44 Pulse 77 05/04/20 07:23 Resp 16 05/04/20 06:30 BP 93/51 L 05/04/20 07:23 ENMT Mouth: no dentition abnormality Thyromental Distance: > or= 3.5 Finger Breadths Mallampati Class: II Neck normal visual inspection Respiratory normal respiratory effort Auscultation: lungs clear to auscultation bilaterally Cardiovascular Rate/Rhythm: regular rate and regular rhythm Testing Laboratory Results 05/03/20 23:39 Blood Type A Positive 05/03/20 23:39 Antibody Screen NEGATIVE 05/03/20 23:39
[2020-05-04] MEDS ORDERED: NALOXONE HCL 1 MG in SODIUM CHLORIDE 0.9% 1000ML 1,000 ML IV PRN (08:21)
[2020-05-04] MEDS ORDERED: fentaNYL 2MCG/ML ROPIVACAINE 1.25MG/ML 100 ML BAG EPI PRN (08:21)
[2020-05-04] MEDS ORDERED: diphenhydrAMINE 50 MG/ML VIAL IV PRN (08:21)
[2020-05-04] MEDS ORDERED: ePHEDrine sulfate 50 MG/ML AMP IV PRN (08:21)
[2020-05-04] MEDS ORDERED: NALOXONE HCL 0.4 MG/1 ML VIAL/CARP IV PRN (08:21)
[2020-05-04] MEDS ORDERED: ONDANSETRON INJ 2 MG/ML 2 ML VIAL IV PRN (08:21)
[2020-05-04] MEDS ORDERED: LIDOCAINE HCL 1% 20 ML VIAL ONE (12:49)
--- NOTE | 2020-05-04 13:17 | Delivery Summary ---
Vaginal Delivery Summary Date of Service May 04, 2020 Vaginal Delivery Summary Delivery Note live female over intact perineum with delayed cord clamping and 8/9 weight pending. Cord blood obtained and placenta delivered spontaneously and intact. Second degree tear noted and repaired with 3/0 Vicryl suture following 1% Lidocaine local infiltration. Final sponge needle and instrument count are correct. EBL 300 ml. Mom and baby stable.
[2020-05-04] MEDS ORDERED: OXYTOCIN 30 UNITS/500 ML BAG IV PRN (13:23)
[2020-05-04] MEDS ORDERED: bisacodyL 10 MG SUPP PR PRN (13:23)
[2020-05-04] MEDS ORDERED: DIPHTHERIA/TETANUS/PERTUSSIS 0.5 ML SYR/VIAL IM ONE (13:23)
[2020-05-04] MEDS ORDERED: SUPERCREAM 0.870% 15 GM JAR EXT PRN (13:23)
[2020-05-04] MEDS ORDERED: BENZOCAINE 20% AER SPR 82.5 GM CAN EXT PRN (13:23)
[2020-05-04] MEDS ORDERED: HYDROCORTISONE ACETATE 25 MG SUPP PR PRN (13:23)
--- NOTE | 2020-05-04 14:09 | Anesthesia Procedure Note ---
Date of Service May 04, 2020 Anesthesia Post Epidural Note Vital Signs Vital Signs: Temp Pulse Resp BP Pulse Ox 97.9 F 103 H 18 103/62 96 05/04/20 11:49 05/04/20 14:03 05/04/20 13:15 05/04/20 14:03 05/04/20 13:17 Pain Intensity Abdomen: Pain Intensity: 7 Notes Mental Status: alert / awake / arousable and participated in evaluation Nausea / Vomiting: adequately controlled Pain: adequately controlled Airway Patency, RR, SpO2: stable & adequate BP & HR: stable & adequate Hydration State: stable & adequate Neuraxial Anesthesia: was administered and sensory block is resolving Anesthetic Complications: no major complications apparent and Pt Satisfied with anesthetic care Epidural: Removed without complications and With tip intact
[2020-05-04] MEDS: IBUPROFEN 600 MG TAB PO PRN ×2 (17:56→23:35)
[2020-05-04] MEDS: ACETAMINOPHEN 325 MG TAB PO PRN (20:00)
[2020-05-04] MEDS: DOCUSATE SODIUM 100 MG CAP PO SCH (20:58)
[2020-05-05] MEDS: IBUPROFEN 600 MG TAB PO PRN ×3 (05:42→20:42)
[2020-05-05 06:30] LABS: Hematocrit (blood only) 28.1 % (37-47); Hemoglobin 9.2 g/dL (12.0-16.0); Mean Corpuscular Hemoglobin 30.5 pg (25-34); Mean Corpuscular Hgb Conc 32.7 g/dL (32-36); Platelet Count 170 K/uL (130-400); RDW Coefficient of Variation 15.4 % (11.5-14.5); RDW Standard Deviation 51.8 fL (36.4-46.3); Red Blood Count 3.02 M/uL (4.2-5.4); White Blood Count 11.95 K/uL (4.8-10.8)
[2020-05-05] MEDS: PRENATAL VITAMIN 1 TAB PO SCH (08:13)
[2020-05-05] MEDS: DOCUSATE SODIUM 100 MG CAP PO SCH ×2 (08:13→20:42)
--- NOTE | 2020-05-05 08:35 | Obstetrical Progress Note ---
Date of Service May 05, 2020 Assessment & Plan Admission and Anticipated Discharge Date Admission Date: May 03, 2020 Subjective Patient is seen and examined. She feels well, no complaints other than cramping. Ambulating without dizziness Voiding without difficulty Tolerating regular diet with out N&V Bleeding is minimal No fever/ chills/ CP/ SOB/ N&V/ Leg pain Breast feeding without problems Vital Signs Temp Pulse Pulse Resp BP BP Pulse Ox 05/05/20 07:50 36.5 C 69 16 104/67 05/05/20 05:00 36.4 C L 65 18 96/59 L 98 05/04/20 23:15 36.9 C 82 18 108/74 97 05/04/20 19:57 36.8 C 70 18 106/70 97 05/04/20 16:30 36.9 C 82 16 101/65 100 05/04/20 16:15 18 05/04/20 16:01 98 H 107/69 05/04/20 15:46 90 101/66 05/04/20 15:32 97 H 105/67 05/04/20 15:17 72 111/65 05/04/20 15:14 131 H 92/48 L 05/04/20 15:12 114 H 98/61 L 05/04/20 15:03 100 H 102/66 05/04/20 15:00 36.8 C 18 05/04/20 14:48 100 H 100/65 05/04/20 14:33 94 H 103/68 05/04/20 14:30 18 05/04/20 14:19 105 H 96/61 L 05/04/20 14:03 103 H 103/62 05/04/20 13:48 103 H 102/61 05/04/20 13:33 95 H 105/63 05/04/20 13:30 18 05/04/20 13:18 106 H 103/59 L 05/04/20 13:17 117 H 96 05/04/20 13:15 18 05/04/20 13:12 99 H 99 05/04/20 13:07 97 H 100 05/04/20 13:03 91 H 107/56 L 05/04/20 13:02 86 99 05/04/20 13:00 18 05/04/20 12:57 94 H 97 05/04/20 12:52 118 H 96 05/04/20 12:49 104 H 111/59 L 05/04/20 12:47 108 H 18 96 05/04/20 12:42 105 H 99 05/04/20 12:37 135 H 98 05/04/20 12:35 89 111/56 L 05/04/20 12:34 113 H 93 05/04/20 12:32 117 H 95 05/04/20 12:30 18 05/04/20 12:27 82 100 05/04/20 12:22 83 100 05/04/20 12:19 83 114/57 L 05/04/20 12:17 85 100 05/04/20 12:12 83 99 05/04/20 12:10 98 H 89 L 05/04/20 12:07 75 100 05/04/20 12:05 89 111/55 L 05/04/20 12:02 95 H 89 L 05/04/20 12:00 90 92 05/04/20 11:57 91 H 99 05/04/20 11:52 87 99 05/04/20 11:49 36.6 C 91 H 18 111/60 05/04/20 11:47 92 H 98 05/04/20 11:42 83 99 05/04/20 11:37 92 H 98 05/04/20 11:34 91 H 129/57 L 05/04/20 11:32 87 97 05/04/20 11:30 18 05/04/20 11:27 86 97 05/04/20 11:22 86 97 05/04/20 11:19 84 104/63 05/04/20 11:17 86 97 05/04/20 11:12 93 H 97 05/04/20 11:07 89 97 05/04/20 11:03 76 103/62 05/04/20 11:02 81 97 05/04/20 11:00 18 05/04/20 10:57 89 97 05/04/20 10:52 85 97 05/04/20 10:48 88 106/63 05/04/20 10:47 86 97 05/04/20 10:42 86 97 05/04/20 10:37 84 97 05/04/20 10:33 86 109/60 05/04/20 10:32 80 98 05/04/20 10:30 18 05/04/20 10:27 86 97 05/04/20 10:22 89 96 05/04/20 10:20 81 110/56 L 05/04/20 10:17 88 98 05/04/20 10:12 75 98 05/04/20 10:07 77 98 05/04/20 10:03 82 100/60 05/04/20 10:02 79 97 05/04/20 10:00 18 05/04/20 09:57 81 97 05/04/20 09:52 83 98 05/04/20 09:48 86 105/65 05/04/20 09:47 83 98 05/04/20 09:42 81 99 05/04/20 09:37 80 98 05/04/20 09:34 81 104/64 05/04/20 09:33 37.1 C 18 05/04/20 09:32 96 H 98 05/04/20 09:27 79 98 05/04/20 09:25 18 05/04/20 09:22 78 99 05/04/20 09:19 80 96/53 L 05/04/20 09:17 81 99 05/04/20 09:12 73 98 05/04/20 09:07 73 98 05/04/20 09:05 75 94/52 L 05/04/20 09:02 72 99 05/04/20 08:57 74 99 05/04/20 08:52 75 97 05/04/20 08:49 74 96/53 L 05/04/20 08:47 77 98 05/04/20 08:42 76 97 05/04/20 08:37 80 99 Intake and Output 05/04/20 05/05/20 05/05/20 22:59 06:59 14:59 Output Total 300 / 600 Balance -300 / 1202.950 Output: Urine 300 / 300 Lab Results 05/03/20 05/03/20 05/03/20 Range/Units 23:17 23:17 23:39 WBC (4.8-10.8) K/uL RBC (4.2-5.4) M/uL Hgb (12.0-16.0) g/dL Hct (37-47) % MCV (80-100) fL MCH (25-34) pg MCHC (32-36) g/dL RDW Std Deviation (36.4-46.3) fL RDW Coeff of Fadi (11.5-14.5) % Plt Count (130-400) K/uL MPV (7.4-10.4) fL COVID-19 Eval [facility] SARS-CoV-2, RNA, NAAT NEGATIVE (NEGATIVE) Blood Type A Positive Antibody Screen NEGATIVE 05/03/20 05/05/20 Range/Units 23:39 06:10 WBC 9.95 11.95 H (4.8-10.8) K/uL RBC 3.93 L 3.02 L (4.2-5.4) M/uL Hgb 11.6 L 9.2 L (12.0-16.0) g/dL Hct 36.2 L 28.1 L (37-47) % MCV 92.1 93.0 (80-100) fL MCH 29.5 30.5 (25-34) pg MCHC 32.0 32.7 (32-36) g/dL RDW Std Deviation 50.0 H 51.8 H (36.4-46.3) fL RDW Coeff of Fadi 14.8 H 15.4 H (11.5-14.5) % Plt Count 176 170 (130-400) K/uL MPV 11.8 H 12.0 H (7.4-10.4) fL COVID-19 Eval Order SARS-CoV-2, RNA, NAAT (NEGATIVE) Blood Type Antibody Screen PE: General: Alert, orientedx3, NAD Abd: soft, NT, fundus firm, below Umbilicus Perineum intact, Lochia rubra minimal Ext; NT, no edema AP: 24 yo s/p , ppd# 1 VSS Afebrile doing well Continue routine care All questions were answered D/C home , tomorrow Results & Data ([facility]) Vital Signs (Past 12 Hours) Vital Signs Temp Pulse Resp BP Pulse Ox 05/05/20 07:50 36.5 C 69 16 104/67 05/05/20 05:00 36.4 C L 65 18 96/59 L 98 05/04/20 23:15 36.9 C 82 18 108/74 97
[2020-05-05] MEDS ORDERED: PRENATAL VITAMIN 1 TAB PO SCH (09:00)
[2020-05-05] MEDS: FERROUS SULFATE 325 MG TAB PO SCH (10:00)
[2020-05-05] MEDS ORDERED: bisacodyL 5 MG TABEC PO SCH (20:00)
[2020-05-06] MEDS: IBUPROFEN 600 MG TAB PO PRN (00:48)
[2020-05-06 06:18] LABS: Hematocrit (blood only) 26.7 % (37-47); Hemoglobin 8.6 g/dL (12.0-16.0)
[2020-05-06] MEDS: PRENATAL VITAMIN 1 TAB PO SCH (08:35)
[2020-05-06] MEDS: ACETAMINOPHEN 325 MG TAB PO PRN (08:36)
[2020-05-06] MEDS: FERROUS SULFATE 325 MG TAB PO SCH (08:36)
[2020-05-06] MEDS: DOCUSATE SODIUM 100 MG CAP PO SCH (08:36)
--- NOTE | 2020-05-06 09:07 | Obstetrical Progress Note ---
Date of Service May 06, 2020 Assessment & Plan Admission and Anticipated Discharge Date Admission Date: May 03, 2020 Subjective PPD#2 stable out of bed tolerating diet passing gas Physical Exam Constitutional: WD/WN, vitals as above well developed and comfortable abdomen is soft and non-tender fundus is firm no edema neg Shanita's for d/c today Results & Data ([facility]) Vital Signs (Past 12 Hours) Vital Signs Temp Pulse Resp BP Pulse Ox 05/06/20 00:20 36.6 C 76 16 102/66 98 Laboratory Results Laboratory Results - last 72 hr 05/03/20 05/03/20 05/03/20 23:17 23:17 23:39 WBC RBC Hgb Hct MCV MCH MCHC RDW Std Deviation RDW Coeff of Fadi Plt Count MPV COVID-19 Eval [facility] SARS-CoV-2, RNA, NAAT NEGATIVE Blood Type A Positive Antibody Screen NEGATIVE 05/03/20 05/05/20 05/06/20 23:39 06:10 05:57 WBC 9.95 11.95 H RBC 3.93 L 3.02 L Hgb 11.6 L 9.2 L 8.6 L Hct 36.2 L 28.1 L 26.7 L MCV 92.1 93.0 MCH 29.5 30.5 MCHC 32.0 32.7 RDW Std Deviation 50.0 H 51.8 H RDW Coeff of Fadi 14.8 H 15.4 H Plt Count 176 170 MPV 11.8 H 12.0 H COVID-19 Eval Order SARS-CoV-2, RNA, NAAT Blood Type Antibody Screen
[2020-05-06] MEDS ORDERED: MEASLES, MUMPS & RUBELLA VIRUS VIAL SQ ONE (11:27)
== END 2020-05-06 14:00 | disposition home or self-care (01) | DRG 807 ==
LOC: OPB 22:50 → 4S1 23:03 → 4S2 05-04 16:15